=== PATIENT | female | born 1955 | race Caucasian/White ===

== ENCOUNTER 2016-06-03 11:09 | Emergency (ER) | payer OTHER ==
[2016-06-03 11:24] VITALS: BP 120/64; PULSE 56; RESP 16; TEMP 97.7; O2SAT 96
[2016-06-03 11:36] LABS: COLOR BROWN; LEUKOCYTE ESTERASE,URINE 2+ (NEGATIVE); NITRITE,URINE NEGATIVE (NEGATIVE); PH,URINE 6.5 (5.0-7.5)
--- NOTE | 2016-06-03 11:38 | UCPHY ---
H & P Patient Type: New Smoking Status: Never smoked Time Seen by Provider: 06/03/16 11:35 HPI/ROS: HPI: 60-year-old female presents to urgent care with chief concern urinary burning and frequency that onset suddenly yesterday morning. Denies fever, chills, nausea, vomiting, abdominal pain, back or flank pain, hematuria, vulvovaginal lesions, unusual vaginal discharge. Used a Pyridium yesterday with minimal improvement. Symptoms onset 24 hours after she had intercourse. Allergic to penicillin and sulfa. Allergy to penicillin is a rash when she was young. ROS:10 point review of systems is negative other than as stated in HPI (Marimar Reese) Past Medical/Surgical History: Recent thyroidectomy (Marimar Reese) Physical Exam: Vital signs stable, reviewed by me General: Awake, alert, calm, cooperative. No acute distress. Head: Normalocephalic. Atraumatic. EENT: PERRLA. EOMI. No pallor or injection. Anicteric. No nystagmus. No injection. Respiratory: Breathing unlabored. Breath sounds equal bilaterally and clear to auscultation. No adventitious sounds. CV: Chest nontender, atraumatic. Heart rate regular. No murmur, distal pulses 2+ bilaterally. Brisk cap refill all extremities. GI: Abdomen soft, nontender. Bowel sounds normoactive and positive x4 quadrants. : No suprapubic tenderness. No CVA or flank tenderness. Neuro: Alert. Oriented x 3. Speech clear. Nonfocal cranial nerves throughout. Sensation intact all extremities. Skin: Skin warm, dry, intact. Skin turgor normal. Extremities: Full range of motion in all 4 extremities. (Marimar Reese) Constitutional: Initial Vital Signs Temperature (C) 36.5 C 06/03/16 11:21 Heart Rate 56 L 06/03/16 11:21 Respiratory Rate 16 06/03/16 11:21 Blood Pressure 120/64 06/03/16 11:21 O2 Sat (%) 96 06/03/16 11:21 O2 Delivery Mode Room Air Allergies/Adverse Reactions: Penicillins Allergy (Unknown, Verified 04/27/16 11:47) Unknown Sulfa (Sulfonamide Antibiotics) Allergy (Verified 04/27/16 11:47) Home Medications: Medication Instructions Recorded Herbals/Supplements -Info Only 1 ea PO DAILY 02/16/16 Levothyroxine [Synthroid 100 mcg 100 mcg PO DAILY06 02/16/16 (*)] Atorvastatin Calcium [Lipitor 10 10 mg PO DAILY 04/27/16 mg (*)] Cephalexin [Keflex (*)] 500 mg PO BID #14 cap 06/03/16 Medical Decision Making ED Course/Re-evaluation: 60-year-old afebrile nontoxic female without any systemic symptoms presents to urgent care with chief concern urinary burning and frequency. No back or flank pain. No nausea or vomiting. Vitals stable. Tolerating p.o.. Urinalysis confirms urinary tract infection with 3+ blood, 2+ esterase, greater than 182 RBCs, 10-15 WBCs, culture is pending. Patient started on twice daily Keflex. ( Marimar Reese) Urgent Care PA supervision Physician documentation: The patient was evaluated and managed by the physician [employer] assistant principal. My co- signature indicates that I have reviewed this chart and I agree with the findings and plan of care as documented. I am the secondary supervising physician. (Franck Quintero) Differential Diagnosis: Cystitis, dysuria, pyelonephritis (Marimar Reese) Departure - Departure Disposition: Home, Routine, Self-Care Clinical Impression: UTI (urinary tract infection) Condition: Good Instructions: Urinary Tract Infection in Women (ED) Additional Instructions: Plan: You have a urinary tract infection. Drink plenty of fluids. Take the Keflex antibiotic twice daily for 1 week. Take an [id number]-[id number] probiotic and/or eat yogurt while taking this antibiotic. Urostat or Azo-Standard available [id number] as needed for bladder spasm and pain Return if flank pain, fever, nausea or vomiting, or feeling worse. Return if no improvement in symptoms in 48 hours. follow up as directed Referrals: Nubia Peters PA [Primary Care Provider] - As per Instructions Prescriptions: Cephalexin [Keflex (*)] 500 mg PO BID #14 cap - PQRS PQRS Measurement: 134: Depression screening and followup, PRIME MD-PHQ2 (12 years and older) Over the last 2 weeks, how often have you been bothered by any of the following problems? 1. Feeling down, depressed, or hopeless? 2. Little interest or pleasure in doing things? Patient answered no to both 1 and 2 130: Documentation of medications. Reviewed all patient medications, doses, route and frequency. 226: Do you smoke? No 47: 65 and older: Advanced care planning. Patient declines 51: 18 years old and older with diagnosis of COPD, spirometry performance. Patient has no history of COPD 52: 18 years old and older with COPD and symptoms of COPD or FEV1<60% no history of COPD (Marimar Reese)
[2016-06-03 11:50] LABS: BACTERIA 3+ /hpf (NONE SEEN); MUCUS TRACE /lpf (NONE-1+); RBC,URINE >182 /hpf (0-3); RENAL EPITHELIAL CELLS OCCASIONAL /hpf (NONE SEEN)
== END 2016-06-03 11:55 | disposition home or self-care (01) ==
LOC: CED 11:09
DX: N39.0 Urinary tract infection, site not specified (principal)
CPT/HCPCS: 81003-PO; 81015-PO; G0463-PO

== ENCOUNTER 2016-07-15 16:05 | Emergency (ER) | payer OTHER ==
[2016-07-15 16:51] VITALS: BP 125/70; PULSE 55; RESP 18; TEMP 98.2; O2SAT 96
--- NOTE | 2016-07-15 18:02 | UCPHY ---
H & P Time Seen by Provider: 07/15/16 17:54 Patient Type: Established Smoking Status: Never smoked Constitutional: Initial Vital Signs Temperature (C) 36.8 C 07/15/16 16:47 Heart Rate 55 L 07/15/16 16:47 Respiratory Rate 18 07/15/16 16:47 Blood Pressure 125/70 H 07/15/16 16:47 O2 Sat (%) 96 07/15/16 16:47 O2 Delivery Mode Room Air Allergies/Adverse Reactions: Penicillins Allergy (Unknown, Verified 07/15/16 16:46) Unknown Sulfa (Sulfonamide Antibiotics) Allergy (Verified 07/15/16 16:46) Home Medications: Medication Instructions Recorded Herbals/Supplements -Info Only 1 ea PO DAILY 02/16/16 Levothyroxine [Synthroid 100 mcg 100 mcg PO DAILY06 02/16/16 (*)] Atorvastatin Calcium [Lipitor 10 10 mg PO DAILY 04/27/16 mg (*)] Hrt Base 07/15/16 Departure - Departure Clinical Impression: Avulsion of skin of finger Qualifiers: Encounter type: initial encounter Qualified Code(s): S61.209A - Unspecified open wound of unspecified finger without damage to nail, initial encounter Condition: Good Instructions: Skin Avulsion (ED) Additional Instructions: Keep it covered. Watch for signs of infection. Keep it dry. Keep it clean The Surgicel will spontaneously release on its own in about 14-16 days Referrals: Nubia Peters PA [Primary Care Provider] - As per Instructions - PQRS PQRS Measurement: NA
== END 2016-07-15 18:09 | disposition home or self-care (01) ==
LOC: CED 16:05
PROC: 0HQGXZZ Repair Left Hand Skin, External Approach (ICD-10-PCS; principal; 2016-07-15)
DX: S61.213A Laceration without foreign body of left middle finger without damage to nail, initial encounter (principal); W23.1XXA Caught, crushed, jammed, or pinched between stationary objects, initial encounter; Y92.019 Unspecified place in single-family (private) house as the place of occurrence of the external cause
CPT/HCPCS: G0463-PO

== ENCOUNTER → 2017-09-20 | Outpatient (CLI) | payer OTHER | LOC: CIMAGING 16:56 | DX: E89.0 Postprocedural hypothyroidism (principal) | CPT/HCPCS: 76536-PO ==

== ENCOUNTER → 2017-10-03 | Outpatient (CLI) | payer OTHER ==
[~2017-10-03] MED LIST: IOPAMIDOL (ISOVUE 370) 100 ML BTL IV ONE
== END ==
LOC: CIMAGING 08:23
PROVIDERS: ATTEND Internal Medicine Cardiovascular Disease
DX: I71.2 Thoracic aortic aneurysm, without rupture (principal); R91.1 Solitary pulmonary nodule
CPT/HCPCS: 71275-PO; Q9967

== ENCOUNTER → 2017-11-28 | Outpatient (CLI) | payer OTHER | LOC: FIMAGING 12:56 | PROVIDERS: ATTEND Physician Assistant | DX: Z12.31 Encounter for screening mammogram for malignant neoplasm of breast (principal) ==

== ENCOUNTER → 2018-05-14 | Outpatient (CLI) | payer OTHER | LOC: FIMAGING 13:48 | PROVIDERS: ATTEND Physician Assistant | DX: Z13.820 Encounter for screening for osteoporosis (principal); Z78.0 Asymptomatic menopausal state; Z79.899 Other long term (current) drug therapy; Z82.62 Family history of osteoporosis ==